=== PATIENT | male | born 1945 | race Caucasian/White ===

== ENCOUNTER → 2017-02-22 | Outpatient (CLI) | payer BC, OTHER ==
[~2017-02-22] MED LIST: ASPI-321 OR; FLM4 PO; LEVO100T84 PO; NCDT21X EXT
--- NOTE | 2017-02-22 09:24 | DIAGNOSTIC IMAGING REPORT ---
RIGHT HIP UNILATERAL MIN 2 VIEWS CLINICAL HISTORY: Right hip pain Right pain COMPARISON: None. DISCUSSION: Mild degenerative narrowing right hip joint space. Minimal calcific trochanteric bursitis. No evidence for acetabular protrusion. IMPRESSION: Mild degenerative change. Minimal calcific trochanteric bursitis. Electronically signed by: Petey Choudhury M.D. 02/22/2017 9:22 AM Dictated Date/Time: 02/22/2017 9:22 AM
--- NOTE | 2017-02-22 09:32 | DIAGNOSTIC IMAGING REPORT ---
PELVIS 1 OR 2 VIEWS CLINICAL HISTORY: Lower back pain COMPARISON STUDY: None. FINDINGS: No fracture or dislocation within the pelvis or hips. Small osteophytes at the hips consistent with minimal degenerative change. The sacrum appears intact. IMPRESSION: No fracture or dislocation within the pelvis or hips. Electronically signed by: oRlly Colón M.D. 02/22/2017 9:30 AM Dictated Date/Time: 02/22/2017 9:28 AM
--- NOTE | 2017-02-22 09:34 | DIAGNOSTIC IMAGING REPORT ---
LUMBAR SPINE 5 VIEWS HISTORY: Back pain Lower back pain COMPARISON: None. FINDINGS: There is no fracture. No subluxation. Degenerative disc change L5-S1. Considerable anterior osteophytic reaction. IMPRESSION: Degenerative change primarily at L5-S1. No acute process. Electronically signed by: Petey Choudhury M.D. 02/22/2017 9:32 AM Dictated Date/Time: 02/22/2017 9:27 AM
== END | disposition home or self-care (01) ==
LOC: C.RDSM 08:22
PROVIDERS: ATTEND Internal Medicine
DX: M47.897 Other spondylosis, lumbosacral region (principal); M70.61 Trochanteric bursitis, right hip